=== PATIENT | female | born 1995 | race Caucasian/White ===

== ENCOUNTER 2019-02-27 02:28 | Inpatient (IN) ==
[2019-02-27] MEDS ORDERED: Haloperidol Lactate 5 MG/ML VIAL IM PRN (02:37)
[2019-02-27] MEDS ORDERED: hydrOXYzine pamoate 25 MG CAPSULE PO PRN (02:37)
[2019-02-27] MEDS ORDERED: *HR* LORazepam 1 MG TABLET PO PRN (02:37)
[2019-02-27] MEDS ORDERED: Mag Hydrox/Al Hydrox/Simeth 30 ML UDC PO PRN (02:37)
[2019-02-27] MEDS ORDERED: traZODone 50 MG TABLET PO PRN (02:37)
[2019-02-27] MEDS ORDERED: *HR* LORazepam 2 MG/ML VIAL IM PRN (02:37)
[2019-02-27] MEDS ORDERED: Acetaminophen 325 MG TABLET PO PRN (02:37)
[2019-02-27] MEDS ORDERED: MOM Conc 10 ML UD.LIQ PO PRN (02:37)
[2019-02-27] MEDS: Venlafaxine XR (24 HR) 37.5 MG CAP.ER.24H PO SCH (17:47)
[2019-02-27] MEDS ORDERED: hydrOXYzine pamoate 25 MG CAPSULE PO SCH (21:00)
[2019-02-27] MEDS ORDERED: Loratadine 10 MG TABLET PO SCH (21:00)
[2019-02-27] MEDS ORDERED: *HR* Metformin 500 MG TABLET PO SCH (21:00)
[2019-02-28] MEDS: Venlafaxine XR (24 HR) 37.5 MG CAP.ER.24H PO SCH (09:50)
[2019-02-28 11:29] VITALS: BP 129/84
== END 2019-02-28 14:05 | disposition home or self-care (01) | DRG 751 ==
LOC: 1ANU 02:28
PROVIDERS: ADMIT Psychiatry & Neurology Psychiatry; ATTEND Psychiatry & Neurology Psychiatry

== ENCOUNTER 2020-03-22 14:01 | Inpatient (IN) ==
[2020-03-22 14:53] LABS: Bilirubin,Urine Negative (Negative); Blood,Urine Trace-intact (Negative); Clarity,Urine Cloudy (Clear); Color,Urine Yellow (Yellow); Glucose,Urine (UA) Normal (Normal); Ketones,Urine Negative (Negative); Leukocyte Esterase,Urine Trace (Negative); Nitrite,Urine Negative (Negative); PH,Urine 5.5 pH Units (5.0-8.0); Protein,Urine Negative (Neg-Trace); Specific Gravity,Urine >= 1.030 (1.010-1.025); Urobilinogen,Urine Normal (Normal)
[2020-03-22 15:00] LABS: RBC,Urine 0-3 per hpf (0-3)
[2020-03-22 15:01] LABS: Amphetamine Screen,Urine Negative ng/mL (Cutoff=1000); Bacteria,Urine Many per hpf (None-Few); Barbiturate Screen,Urine Negative ng/mL (Cutoff=200); Benzodiazepines Screen,Urine Negative ng/mL (Cutoff=200); Cannabinoid Screen,Urine Negative ng/mL (Cutoff = 50); Cocaine Screen,Urine Negative ng/mL (Cutoff= 300); Opiate Screen,Urine Negative ng/mL (Cutoff=300); Phencyclidine Screen,Urine Negative ng/mL (Cutoff=25); Squamous Epithelial Cell,Urine Many per hpf (None-Few)
[2020-03-22 15:04] LABS: Basophils % 0.3 %; Eosinophils # 0.3 K/mcL (0.0-0.6); Eosinophils % 3.1 %; Hematocrit 43.9 % (35.3-44.9); Hemoglobin 13.9 g/dL (11.5-15.4); Immature Granulocytes % 0.3 % (0-4); Lymphocytes # 2.3 K/mcL (0.6-4.6); Lymphocytes % 21.3 %; Mean Corpuscular HGB Conc 31.7 g/dL (31.6-35.5); Mean Corpuscular Hemoglobin 25.9 pg (28.0-33.3); Mean Corpuscular Volume 81.8 fL (83.0-100.0); Monocytes # 0.6 K/mcL (0.0-1.3); Monocytes % 5.5 %; Neutrophils # 7.3 K/mcL (1.6-8.9); Platelet Count 346 K/mcL (140-400); Red Blood Count 5.37 M/mcL (3.82-4.97); Red Cell Distribution Width 14.6 % (11.5-14.5); Segmented Neutrophils % 69.5 %; White Blood Count 10.6 K/mcL (4.3-11.1)
[2020-03-22 15:11] LABS: Estimated Average Glucose 117 mg/dl
[2020-03-22 15:30] LABS: Acetaminophen < 10 mcg/mL (10-20); BUN/Creatinine Ratio 20 (6-26); Blood Urea Nitrogen 13 mg/dL (6-20); Carbon Dioxide 27 mEq/L (23-29); Chloride 104 mEq/L (98-107); Chol/HDL Ratio 4.8 (0-4.9); Cholesterol 214 mg/dL (< 200); Ethanol < 10 mg/dL (Less than 10); Glucose 115 mg/dL (70-105); HDL Cholesterol 45 mg/dL (40-59); LDL Cholesterol,Calculated 150 mg/dL (< 100); Osmolality,Calculated 289 (280-300); Potassium 3.7 mEq/L (3.5-5.1); Salicylate < 2.5 mg/dL (15.0-30.0); Sodium 139 mEq/L (136-145); Triglycerides 94 mg/dL (< 150); eGFR For African Americans > 60 (> 60); eGFR For Non-African Americans > 60 (> 60)
[2020-03-22] MEDS ORDERED: Ibuprofen 400 MG TABLET PO PRN (18:14)
[2020-03-22] MEDS ORDERED: traZODone 50 MG TABLET PO PRN (18:14)
[2020-03-22] MEDS ORDERED: *HR* LORazepam 1 MG TABLET PO PRN (18:14)
[2020-03-22] MEDS ORDERED: *HR* LORazepam 2 MG/ML VIAL IM PRN (18:14)
[2020-03-22] MEDS ORDERED: Haloperidol Lactate 5 MG/ML VIAL IM PRN (18:14)
[2020-03-22] MEDS ORDERED: MOM Conc 10 ML UD.LIQ PO PRN (18:14)
[2020-03-22] MEDS ORDERED: Mag Hydrox/Al Hydrox/Simeth 30 ML UDC PO PRN (18:14)
[2020-03-22] MEDS ORDERED: hydrOXYzine pamoate 25 MG CAPSULE PO PRN (18:14)
[2020-03-22] MEDS ORDERED: haloperidoL 5 MG TABLET PO PRN (18:14)
[2020-03-23] MEDS: ARIPiprazole 5 MG TABLET PO SCH (12:28)
[2020-03-23] MEDS ORDERED: Ondansetron ODT 4 MG TAB.RAPDIS SL PRN (18:52)
[2020-03-24 08:31] VITALS: BP 127/87
[2020-03-24] MEDS: ARIPiprazole 5 MG TABLET PO SCH (09:31)
== END 2020-03-24 10:00 | disposition home or self-care (01) | DRG 751 ==
LOC: EMEROOARM 14:01 → 1ANU 14:01
PROVIDERS: ADMIT Psychiatry & Neurology Psychiatry; ATTEND Psychiatry & Neurology Psychiatry